=== PATIENT | female | born 1970 | race Caucasian/White ===

== ENCOUNTER → 2020-07-09 | Outpatient (CLI) | payer BC ==
--- NOTE | 2020-07-09 14:48 | P.HPBAR ---
Bariatric H&P - History & Physicial H&P Date: 07/09/20 History & Physicial: Visit/CC: Patient initial contact: Initial weight: Initial weight in pounds: Height: 5 ft 4.5 in Initial BMI: Last weight: Current weight: 117.48 kg Current weight in pounds: Current BMI: [place] body weight (based on NIH guidelines): Excess body weight loss: The patient is a 50 year-old F who presents for Bariatric Assessment. She comes in with high Hgb A1c 11.9%. She comes in with new diagnosis of DM. Her family history is significant for diabetes, hyperlipidemia. She is looking into the sleeve. No heartburn. No stomach or esophageal cancer. No family history of hiatal hernia. No chronic nausea. She still has her gallbladder. She has appendix removed. No procedures. She wants the sleeve. Few labs obtained. Plan for EGD. Get EKG for heart murmur. 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 Needs diabetic education Bariatric Checklist Checklist: Plan: Checklist: EGD: 1. Hiatal hernia: 2. H. Pylori: HgbA1c: Vitamin D: Smoking: Primary care physician referral: Psychiatry clearance: Cardiology clearance: Sleep study: Diet journal: VTE risk score: VTE risk level: Rehab needs at discharge:
[2020-07-09 14:54] VITALS: BP 143/82; PULSE 85; RESP 18; TEMP 98; BMI 43.7
[2020-07-09 16:52] LABS: HCT 46.4 % (34.0-46.0); HGB 15.4 gm/dL (11.4-16.0); MCH 28.2 pg (25.0-35.0); MCHC 33.2 g/dL (31.0-37.0); MCV 85.2 fL (80.0-100.0); Platelet Count 415 k/uL (150-450); RBC 5.44 m/uL (3.80-5.40); RDW 13.1 % (11.5-15.5); WBC 10.7 k/uL (3.8-10.6)
[2020-07-10 01:00] LABS: INR 0.96 (0.90-1.11); Partial Thromboplastin Time 26.5 sec (23.5-31.0); Prothrombin Time 10.4 sec (9.9-11.9)
[2020-07-10 04:47] LABS: % Iron Saturation 14.57 (12.00-45.00); African American GFR (CKD) 76.1 (60.0-200.0); Albumin 4.7 g/dL (3.80-4.90); Albumin/Globulin Ratio 1.88 (1.60-3.17); Calcium 10.2 mg/dL (8.7-10.3); Chol/HDL Ratio 5.48; Globulin 2.5 g/dL (1.6-3.3); LDL Cholesterol,Calculated 128.6 mg/dL (0.0-131.0); Magnesium 1.9 mg/dL (1.5-2.4); Non-African American GFR(CKD) 65.6 (60.0-200.0); Potassium 4.5 mmol/L (3.5-5.5); Total Bilirubin 1.2 mg/dL (0.3-1.2); Total Protein 7.2 g/dL (6.2-8.2); VLDL Calculation 50.4 mg/dL (5.00-40.00)
[2020-07-10 04:56] LABS: Ferritin 160.1 ng/mL (10.0-291.0)
[2020-07-10 05:43] LABS: Folate, Serum 12.3 ng/mL
[2020-07-10 12:43] LABS: Zinc, Serum 67 ug/dL (60-130)
[2020-07-11 07:14] LABS: Vitamin A 29 ug/dL (38-106)
[2020-07-11 07:21] LABS: Vit B1(Thiamine) 77 ug/L (38-122)
[2020-07-13 02:36] LABS: Selenium 124 mcg/L (63-160)
== END | disposition home or self-care (01) ==
LOC: BARWHC3 14:03
PROVIDERS: ATTEND Surgery Plastic and Reconstructive Surgery
DX: E11.9 Type 2 diabetes mellitus without complications (principal); E66.01 Morbid (severe) obesity due to excess calories; D50.8 Other iron deficiency anemias; K90.89 Other intestinal malabsorption; E55.9 Vitamin D deficiency, unspecified; K74.1 Hepatic sclerosis; R01.1 Cardiac murmur, unspecified; N19 Unspecified kidney failure; K50.90 Crohn's disease, unspecified, without complications; Z68.41 Body mass index [BMI] 40.0-44.9, adult; Z90.49 Acquired absence of other specified parts of digestive tract; Z83.3 Family history of diabetes mellitus; Z83.438 Family history of other disorder of lipoprotein metabolism and other lipidemia
CPT/HCPCS: 80053; 80061; 82306; 82525; 82607; 82728; 82746; 83540; 83550; 83735; 83970; 84100; 84134; 84255; 84425; 84590; 84630; 85027; 85610; 85730; 93005; 99211

== ENCOUNTER → 2022-01-26 | Outpatient (CLI) | payer OTHER ==
[2022-01-26 14:34] LABS: Basophils # (A) 0.03 X 10*3/uL (0.00-0.10); Basophils % (A) 0.4 %; Eosinophils # (A) 0.22 X 10*3/uL (0.04-0.35); Eosinophils % (A) 2.6 %; HCT 43.1 % (37.2-46.3); HGB 13.9 g/dL (12.0-15.0); Immature Grans, Automated 0.6 %; Lymphocytes # (A) 2.08 X 10*3/uL (0.90-5.00); Lymphocytes % (A) 24.5 %; MCH 27.5 pg (27.0-32.0); MCHC 32.3 g/dL (32.0-37.0); MCV 85.3 fL (80.0-97.0); Monocytes # (A) 0.69 X 10*3/uL (0.20-1.00); Monocytes % (A) 8.1 %; NRBC Per 100 WBC 0 /100 WBCS (0.0-0.0); Neutrophils # (A) 5.43 X 10*3/uL (1.80-7.70); Neutrophils % (A) 63.8 %; Platelet Count 369 X 10*3/uL (140-440); RBC 5.05 X 10*6/uL (4.10-5.20); RDW 12.7 % (11.5-14.5)
== END | disposition home or self-care (01) ==
LOC: LABPAT 10:21
PROVIDERS: ATTEND Obstetrics & Gynecology
DX: Z01.818 Encounter for other preprocedural examination (principal)
CPT/HCPCS: 85025; 93005

== ENCOUNTER 2022-02-04 07:32 | Day surgery (SDC) | payer OTHER ==
[2022-01-29 09:06] VITALS: BMI 43.2
--- NOTE | 2022-02-03 21:19 | P.HPOB ---
History of Present Illness H&P Date: 02/03/22 Chief Complaint: Postmenopausal bleeding, endometrial thickening on ultrasound This is a 51 y.o. female, 3, para 3, who presents for dilatation and curettage with hysteroscopy due to postmenopausal bleeding and endometrial thickening on ultrasound. She complains of light spotting that occurred about 4 months ago and lasted about a week. She did not have any cramping or pelvic pain. Pelvic ultrasound showed uterus measuring 8.3 x 3.9 x 3.3 cm with endometrium of 6 mm. Her right ovary was normal and left ovary was not well visualized. Her last menstrual period prior to this was November of 2019. OB Hx: . History of 2 vaginal deliveries and 1 section. Prevention Specialist Hx: Menopause age 49. No history of STDs. Social Hx: . Unemployed. Review of Systems Constitutional: Reports night sweats, Denies chills, Denies fever Eyes: bilateral blurred vision, denies pain Ears, nose, mouth and throat: Reports headache (occ), Denies sore throat Cardiovascular: Denies chest pain, Denies shortness of breath Respiratory: Denies cough Gastrointestinal: Denies abdominal pain, Denies diarrhea, Denies nausea, Denies vomiting Genitourinary: Reports abnormal vaginal bleeding, Denies dysuria, Denies hematuria Menstruation: Reports postmenopausal Musculoskeletal: Reports myalgias Neurological: Denies numbness, Denies weakness Psychiatric: Denies anxiety, Denies depression Endocrine: Reports flushing Hematologic/Lymphatic: Reports easy bruising Past Medical History Past Medical History: Diabetes Mellitus, Hyperlipidemia Additional Past Medical History / Comment(s): hx of heart murmur; MIGRAINE HEADACHE, History of Any Multi-Drug Resistant Organisms: None Reported Past Surgical History: Appendectomy, Section, Orthopedic Surgery, Tubal Ligation Additional Past Surgical History / Comment(s): C2 fusion; five sx on right foot; cyst removed from neck; csection X1 Past Anesthesia/Blood Transfusion Reactions: No Reported Reaction Past Psychological History: No Psychological Hx Reported Smoking Status: Never smoker Past Alcohol Use History: Occasional Past Drug Use History: None Reported - Past Family History Mother Family Medical History: No Reported History Father Family Medical History: Congestive Heart Failure (CHF), Diabetes Mellitus Medications and Allergies Home Medications Medication Instructions Recorded Confirmed Type Ibuprofen 200 mg PO Q6H PRN 07/07/20 02/04/22 History metFORMIN HCL 500 mg PO HS 07/07/20 02/04/22 History Pioglitazone [Actos] 15 mg PO DAILY 01/29/22 02/04/22 History Baclofen 5 mg PO DAILY PRN 02/04/22 02/04/22 History Allergies Allergy/AdvReac Type Severity Reaction Status Date / Time No Known Allergies Allergy Verified 02/04/22 07:51 Exam Osteopathic Statement: *. No significant issues noted on an osteopathic structural exam other than those noted in the History and Physical/Consult. HEENT: within normal limits Heart: regular rate and rhythm Lungs: clear to auscultation bilaterally Abdomen: soft, non-tender Pelvic: uterus small, anteverted, non-tender, no adnexal masses or tenderness Extremities: neg. Herman's Assessment and Plan (1) Postmenopausal bleeding Current Visit: No Status: Acute Code(s): N95.0 - POSTMENOPAUSAL BLEEDING SNOMED Code(s): 23988331 (2) Endometrial thickening on ultrasound Current Visit: No Status: Acute Code(s): R93.89 - ABNORMAL FINDINGS ON DX IMAGING OF OTH BODY STRUCTURES SNOMED Code(s): 163244642 Plan: Proceed with dilatation and curettage with hysteroscopy. I have discussed the risks, benefits, and alternative therapies for the above-mentioned procedure and for both sedation/anesthesia as well as necessary blood products administration, if indicated, as they pertain to this patient. The patient has indicated her understanding and acceptance of the risks and procedures discussed.
[~2022-02-04 07:32] MED LIST: DEXAMETHASONE SOD PHOSPHATE 4 MG/ML 1 ML VIAL IV ONE; HYDROmorphone 0.5 MG/0.5 ML SYRINGE IVP PRN; LACTATED RINGERS 1,000 ML IV SCH; ONDANSETRON 4 MG/2 ML VIAL IVP ONE; Pre Op ABX Message 1 EACH MISC MISCELLANE ONE
[2022-02-04 08:18] LABS: Glucose,Whole Blood 255 mg/dL (70-110)
[2022-02-04] MEDS ORDERED: INSULIN ASPART (NovoLOG) 100 UNIT/ML VIAL SQ ONE ×2 (08:42→10:28)
[2022-02-04] MEDS ORDERED: fentaNYL (PF) 50 MCG/ML 2 ML AMP ONE (08:52)
[2022-02-04] MEDS ORDERED: LIDOCAINE 2% INJ 20 MG/ML (2 ML VIAL) ONE (08:52)
[2022-02-04] MEDS ORDERED: ALBUTEROL HFA INHALER INHALATION ONE (08:52)
[2022-02-04] MEDS ORDERED: MIDAZOLAM 2 MG/2 ML VIAL ONE (08:52)
[2022-02-04] MEDS ORDERED: PROPOFOL 10 MG/ML 20 ML VIAL IV ONE (08:52)
[2022-02-04] MEDS ORDERED: SUCCINYLCHOLINE CHLORIDE VIAL 200 MG/10 ML VIAL IV ONE (08:52)
--- NOTE | 2022-02-04 09:27 | P.OP ---
Date of Procedure: 02/04/22 Preoperative Diagnosis: Postmenopausal bleeding Endometrial thickening on ultrasound Postoperative Diagnosis: Same Procedure(s) Performed: Dilation and curettage with hysteroscopy Anesthesia: BENJI Surgeon: Kell Oliva Estimated Blood Loss (ml): 5 Pathology: other (Endometrial curetting) Condition: stable Disposition: same day Indications for Procedure: This is a 51 y.o. female, 3, para 3, who presents for dilatation and curettage with hysteroscopy due to postmenopausal bleeding and endometrial thickening on ultrasound. She complains of light spotting that occurred about 4 months ago and lasted about a week. She did not have any cramping or pelvic pain. Pelvic ultrasound showed uterus measuring 8.3 x 3.9 x 3.3 cm with endometrium of 6 mm. Her right ovary was normal and left ovary was not well visualized. Her last menstrual period prior to this was November of 2019. Operative Findings: Uterus is anteverted, sounded to 7-1/2 cm. Upon hysteroscopy, a dyssynchronous endometrial pattern is noted. No specific polyps or fibroids are visualized. Both tubal ostia are partially visualized. A minimal amount of endometrial curettings are obtained. Description of Procedure: The patient is taken to the operating room where she is placed in the dorsal lithotomy position. She is prepped and draped in the normal sterile fashion. Her bladder is drained with a catheter. Examination is performed under anesthes ia. Uterus is found to be anteverted, with no adnexal masses palpated. Next a weighted speculum was placed in the patient's vagina. A right angle retractor was used to visualize the cervix. The anterior lip of the cervix is grasped with an Allis clamp. The uterus is sounded to 7-1/2 cm. The cervix is gently dilated with Burt dilators until a hysteroscope could be passed. Hysteroscopy is performed using normal saline. The above noted findings are made and pictures are taken. Hysteroscope was withdrawn and then a polyp forcep was used with minimal polypoid type tissue obtained. Next a in size sharp curet was introduced and sharp curettage was performed until a gritty texture was noted. A minimal amount of tissue was obtained. This was removed and sent to pathology. Next the Allis clamp was removed from the anterior lip of the cervix. No active bleeding is noted. All counts are correct and the patient is taken to recovery room in stable condition.
[2022-02-04 09:48] VITALS: TEMP 97.1
[2022-02-04 10:22] LABS: Glucose,Whole Blood 251 mg/dL (70-110)
[2022-02-04 10:40] VITALS: RESP 18
[2022-02-04 11:00] LABS: Glucose,Whole Blood 230 mg/dL (70-110)
[2022-02-04 11:24] VITALS: BP 164/70; PULSE 70
[2022-02-04] MEDS ORDERED: INSULIN ASPART (NovoLOG) 100 UNIT/ML VIAL SQ SCH (12:30)
== END 2022-02-04 11:20 | disposition home or self-care (01) ==
LOC: OR 07:32
PROVIDERS: ATTEND Obstetrics & Gynecology
DX: N84.0 Polyp of corpus uteri (principal); N95.0 Postmenopausal bleeding; E11.69 Type 2 diabetes mellitus with other specified complication; E78.5 Hyperlipidemia, unspecified; G43.909 Migraine, unspecified, not intractable, without status migrainosus; Z86.79 Personal history of other diseases of the circulatory system; Z90.49 Acquired absence of other specified parts of digestive tract; Z98.51 Tubal ligation status; Z82.49 Family history of ischemic heart disease and other diseases of the circulatory system; Z83.3 Family history of diabetes mellitus; Z79.84 Long term (current) use of oral hypoglycemic drugs; E66.01 Morbid (severe) obesity due to excess calories; Z68.41 Body mass index [BMI] 40.0-44.9, adult
CPT/HCPCS: 81025; 88305; 58558; J2250; J0330; J2405; J3010; J2704; J2001

== ENCOUNTER → 2023-07-27 | Outpatient (CLI) | payer BC ==
--- NOTE | 2023-07-29 13:03 | MM ---
Reason for Exam: Screening (asymptomatic). Last mammogram was performed 8 year(s) and 3 month(s) ago. Patient History: Menarche at age 11. First Full-Term at age 20. Postmenopausal. Hormonal Contraceptives for 1 year from age 16 until age 17. Risk Values: Nany 5 year model risk: 1.1%. NCI Lifetime model risk: 8.4%. Prior Study Comparison: 05/24/2008 Bilateral Screening Mammogram, [facility]. 04/15/2015 Bilateral Screening Mammogram, [facility]. Tissue Density: There are scattered fibroglandular densities. Findings: Analyzed By CAD. There is no suspicious group of microcalcifications or new suspicious mass. Benign-appearing calcifications bilaterally. Overall Assessment: Benign, BI-RAD 2 Management: Screening Mammogram of both breasts in [address] [facility] will attempt to contact patient to return for supplemental views and ultrasound if indicated. Patient should continue monthly self-breast exams. A clinical breast exam by your physician is recommended on an annual basis. This exam should not preclude additional follow-up of suspicious palpable abnormalities. Note on Nany scores and lifetime risk: 1. A Nany score greater than 3% is considered moderate risk. If this is the case, consider specialist referral to assess eligibility for a risk reducing agent. 2. If overall lifetime risk for the development of breast cancer is 20% or higher, the patient may qualify for future screening with alternating mammogram and breast MRI. Electronically signed and approved by: Quang Saba DO
== END | disposition home or self-care (01) ==
LOC: RADMAMWWP 17:00
PROVIDERS: ATTEND Family Medicine
DX: Z12.31 Encounter for screening mammogram for malignant neoplasm of breast (principal); Z78.0 Asymptomatic menopausal state
CPT/HCPCS: 77067

== ENCOUNTER → 2025-01-25 | Outpatient (CLI) | payer BC ==
--- NOTE | 2025-01-28 10:36 | MM ---
Reason for Exam: Screening (asymptomatic). Last mammogram was performed 1 year(s) and 6 month(s) ago. Patient History: Menarche at age 11. First Full-Term at age 20. Postmenopausal. Hormonal Contraceptives for 1 year from age 16 until age 17. Risk Values: Nany 5 year model risk: 1.1%. NCI Lifetime model risk: 8.2%. Prior Study Comparison: 05/24/2008 Bilateral Screening Mammogram, [facility]. 04/15/2015 Bilateral Screening Mammogram, [facility]. 07/27/2023 Bilateral MG screening mammo w CAD, [facility]. Tissue Density: There are scattered areas of fibroglandular density. Findings: Analyzed By CAD. Right breast: There is no suspicious group of microcalcifications or new suspicious mass. Left breast: There is no suspicious group of microcalcifications or new suspicious mass. Overall Assessment: Negative, BI-RAD 1 Management: Screening Mammogram of both breasts in [address] [facility] will attempt to contact patient to return for supplemental views and ultrasound if indicated. Patient should continue monthly self-breast exams. A clinical breast exam by your physician is recommended on an annual basis. This exam should not preclude additional follow-up of suspicious palpable abnormalities. Note on Nany scores and lifetime risk: 1. A Nany score greater than 3% is considered moderate risk. If this is the case, consider specialist referral to assess eligibility for a risk reducing agent. 2. If overall lifetime risk for the development of breast cancer is 20% or higher, the patient may qualify for future screening with alternating mammogram and breast MRI. [facility], , 01/25/2025 3:00 PM. Electronically signed and approved by: Quang Saba DO
== END | disposition home or self-care (01) ==
LOC: RADMAMWWP 14:49
PROVIDERS: ATTEND Family Medicine
DX: Z12.31 Encounter for screening mammogram for malignant neoplasm of breast (principal); R92.323 Mammographic fibroglandular density, bilateral breasts; Z78.0 Asymptomatic menopausal state; Z92.0 Personal history of contraception
CPT/HCPCS: 77067